=== PATIENT | female | born 1990 | race Caucasian/White ===

== ENCOUNTER 2016-07-20 23:05 | Emergency (ER) | payer OTHER ==
[2016-07-21] MEDS ORDERED: ACETAMINOPHEN TAB 500 MG TAB PO STA (00:14)
[2016-07-21 00:32] LABS: Basophils % (A) 0 %; CH 29.3; CHCM 35.6; Eosinophils # (A) 0.1 k/uL (0-0.7); Eosinophils % (A) 1 %; HCT 37.5 % (34.0-46.0); HDW 2.33; HGB 12.8 gm/dL (11.4-16.0); Luc # (Auto) 0.11; Luc % (Auto) 1; Lymphocytes # (A) 1.7 k/uL (1.0-4.8); Lymphocytes % (A) 22 %; MCH 28.3 pg (25.0-35.0); MCHC 34.2 g/dL (31.0-37.0); MCV 82.7 fL (80.0-100.0); Monocytes # (A) 0.5 k/uL (0-1.0); Monocytes % (A) 7 %; Neutrophils # (A) 5.4 k/uL (1.3-7.7); Neutrophils % (A) 69 %; RBC 4.53 m/uL (3.80-5.40); RDW 12.2 % (11.5-15.5); WBC 7.8 k/uL (3.8-10.6); WBC (Perox) 8.02
[2016-07-21 00:34] LABS: Appearance,Urine Cloudy (Clear); Bilirubin,Urine Negative (Negative); Calcium Oxalate Crystals,Urine Occasional /hpf; Glucose,Urine (UA) Negative (Negative); Ketones,Urine Negative (Negative); Leukocyte Esterase,Urine Negative (Negative); Mucus,Urine Few /hpf; Nitrite,Urine Negative (Negative); PH, Urine 5.5 (5.0-8.0); Particle Count 8635; Protein,Urine Trace (Negative); RBC,Urine 10 /hpf (0-5); Specific Gravity,Urine 1.022 (1.001-1.035); Squamous Epithelial Cell,Urine 13 /hpf (0-4); UA Billing (MACRO vs. MICRO) MICRO; Urobilinogen,Urine <2.0 mg/dL (<2.0); WBC,Urine 2 /hpf (0-5)
[2016-07-21 00:40] LABS: ALT 32 U/L (9-52); AST 21 U/L (14-36); Alkaline Phosphatase 60 U/L (38-126); Amylase 42 U/L (30-110); Anion Gap 12 mmol/L; Blood Urea Nitrogen 8 mg/dL (7-17); Calcium 9.5 mg/dL (8.4-10.2); Carbon Dioxide 22 mmol/L (22-30); Chloride 104 mmol/L (98-107); Glucose 86 mg/dL (74-99); Non-African American GFR(MDRD) >60 (>60 ml/min/1.73 sqM); Potassium 3.9 mmol/L (3.5-5.1); Sodium 138 mmol/L (137-145); Total Bilirubin 0.5 mg/dL (0.2-1.3); Total Protein 6.7 g/dL (6.3-8.2)
--- NOTE | 2016-07-21 00:43 | ED ---
Abdominal Pain HPI - General Chief Complaint: Abdominal Pain Stated Complaint: abdominal pain early Time Seen by Provider: 07/20/16 23:53 Source: patient, RN notes reviewed Mode of arrival: ambulatory - History of Present Illness Initial Comments: Patient is 25-year-old female presenting to the with chief complaint of diffuse abdominal pain for approximately 1 hour. She states that she thinks an early . She states this is no nausea. She denies any changes in stools recently. She denies any fevers or chills. States that the pain is a crampy like sensation and radiates throughout the entire abdomen. She denies any radiation towards her back. Denies any dysuria or hematuria. She denies any vaginal discharge or vaginal spotting. She states that she has not followed up with BUSINESS DATA ANALYST. - Related Data Home Medications Medication Instructions Recorded Confirmed No Known Home Medications [No 07/20/16 07/20/16 Known Home Medications] Allergies Allergy/AdvReac Type Severity Reaction Status Date / Time Penicillins Allergy Rash/Hives Verified 07/20/16 23:43 Review of Systems ROS Statement: Those systems with pertinent positive or pertinent negative responses have been documented in the HPI. ROS Other: All systems not noted in ROS Statement are negative. Past Medical History Past Medical History: No Reported History History of Any Multi-Drug Resistant Organisms: None Reported Past Surgical History: No Surgical Hx Reported Past Psychological History: No Psychological Hx Reported Smoking Status: Current some day smoker Past Alcohol Use History: None Reported Past Drug Use History: None Reported General Exam - General Exam Comments Initial Comments: Patient is a pleasant 25-year-old female. She does not appear to be in any significant distress at this time. General appearance: alert, in no apparent distress Head exam: Present: atraumatic, normocephalic, normal inspection Eye exam: Present: normal appearance, PERRL, EOMI. Absent: scleral icterus, conjunctival injection, periorbital swelling ENT exam: Present: normal exam, mucous membranes moist Neck exam: Present: normal inspection. Absent: tenderness, meningismus, lymphadenopathy Respiratory exam: Present: normal lung sounds bilaterally. Absent: respiratory distress, wheezes, rales, rhonchi, stridor Cardiovascular Exam: Present: regular rate, normal rhythm, normal heart sounds. Absent: systolic murmur, diastolic murmur, rubs, gallop, clicks GI/Abdominal exam: Present: soft, tenderness (Diffuse abdominal tenderness.), normal bowel sounds. Absent: distended, guarding, rebound, rigid, diminished bowel sounds, hyperactive bowel sounds Extremities exam: Present: normal inspection, full ROM, normal capillary refill. Absent: tenderness, pedal edema, joint swelling, calf tenderness Back exam: Present: normal inspection Neurological exam: Present: alert, oriented X3, CN II-XII intact Psychiatric exam: Present: normal affect, normal mood Skin exam: Present: warm, dry, intact, normal color. Absent: rash Course Vital Signs 07/20/16 07/21/16 23:08 02:03 Temperature 98.4 F 98 F Pulse Rate 115 H 98 Respiratory 18 20 Rate Blood Pressure 139/84 124/72 O2 Sat by Pulse 99 98 Oximetry Medical Decision Making - Medical Decision Making 25 female in early with 1 hour of abodminal pain. Labs reviewed to be normal. . Patient was given PO tylenol and IV hydration and pain has completely subsided. PAtient thinks it was related to gas. Patient transvaginal US shows IUP measuring 9 weeks. When I went to start pelvvic exam patient stated that she is pain free and wants to go home. Patient was reevaluated and denies abdominal tenderness and vaginal discharge or spotting. She refused pelvic exam. Patient will be discharged home and instructed to follow up with OBGYN. Patient understands treatment plan and will comply. Patient has at home vitamins. - Lab Data Result diagrams: 07/21/16 00:20 07/21/16 00:20 Lab Results 07/21/16 07/21/16 07/21/16 Range/Units 00:20 00:20 00:20 WBC 7.8 (3.8-10.6) k/uL RBC 4.53 (3.80-5.40) m/uL Hgb 12.8 (11.4-16.0) gm/dL Hct 37.5 (34.0-46.0) % MCV 82.7 (80.0-100.0) fL MCH 28.3 (25.0-35.0) pg MCHC 34.2 (31.0-37.0) g/dL RDW 12.2 (11.5-15.5) % Plt Count 305 (150-450) k/uL Neutrophils % 69 % Lymphocytes % 22 % Monocytes % 7 % Eosinophils % 1 % Basophils % 0 % Neutrophils # 5.4 (1.3-7.7) k/uL Lymphocytes # 1.7 (1.0-4.8) k/uL Monocytes # 0.5 (0-1.0) k/uL Eosinophils # 0.1 (0-0.7) k/uL Basophils # 0.0 (0-0.2) k/uL Sodium 138 (137-145) mmol/L Potassium 3.9 (3.5-5.1) mmol/L Chloride 104 (98-107) mmol/L Carbon Dioxide 22 (22-30) mmol/L Anion Gap 12 mmol/L BUN 8 (7-17) mg/dL Creatinine 0.50 L (0.52-1.04) mg/dL Est GFR (MDRD) Af Amer >60 (>60 ml/min/1.73 sqM) Est GFR (MDRD) Non-Af >60 (>60 ml/min/1.73 sqM) Glucose 86 (74-99) mg/dL Calcium 9.5 (8.4-10.2) mg/dL Total Bilirubin 0.5 (0.2-1.3) mg/dL AST 21 (14-36) U/L ALT 32 (9-52) U/L Alkaline Phosphatase 60 (38-126) U/L Total Protein 6.7 (6.3-8.2) g/dL Albumin 4.1 (3.5-5.0) g/dL Amylase 42 (30-110) U/L Lipase 124 (23-300) U/L Urine Color Yellow Urine Appearance Cloudy H (Clear) Urine pH 5.5 (5.0-8.0) Ur Specific [place] 1.022 (1.001-1.035) Urine Protein Trace H (Negative) Urine Glucose (UA) Negative (Negative) Urine Ketones Negative (Negative) Urine Blood Trace H (Negative) Urine Nitrate Negative (Negative) Urine Bilirubin Negative (Negative) Urine Urobilinogen <2.0 (<2.0) mg/dL Ur Leukocyte Esterase Negative (Negative) Urine RBC 10 H (0-5) /hpf Urine WBC 2 (0-5) /hpf Ur Squamous Epith Cells 13 H (0-4) /hpf Calcium Oxalate Crystal Occasional H (None) /hpf Urine Mucus Few H (None) /hpf Urine HCG, Qual (Not Detectd) Blood Type Blood Type Recheck 07/21/16 07/21/16 Range/Units 00:20 00:20 WBC (3.8-10.6) k/uL RBC (3.80-5.40) m/uL Hgb (11.4-16.0) gm/dL Hct (34.0-46.0) % MCV (80.0-100.0) fL MCH (25.0-35.0) pg MCHC (31.0-37.0) g/dL RDW (11.5-15.5) % Plt Count (150-450) k/uL Neutrophils % % Lymphocytes % % Monocytes % % Eosinophils % % Basophils % % Neutrophils # (1.3-7.7) k/uL Lymphocytes # (1.0-4.8) k/uL Monocytes # (0-1.0) k/uL Eosinophils # (0-0.7) k/uL Basophils # (0-0.2) k/uL Sodium (137-145) mmol/L Potassium (3.5-5.1) mmol/L Chloride (98-107) mmol/L Carbon Dioxide (22-30) mmol/L Anion Gap mmol/L BUN (7-17) mg/dL Creatinine (0.52-1.04) mg/dL Est GFR (MDRD) Af Amer (>60 ml/min/1.73 sqM) Est GFR (MDRD) Non-Af (>60 ml/min/1.73 sqM) Glucose (74-99) mg/dL Calcium (8.4-10.2) mg/dL Total Bilirubin (0.2-1.3) mg/dL AST (14-36) U/L ALT (9-52) U/L Alkaline Phosphatase (38-126) U/L Total Protein (6.3-8.2) g/dL Albumin (3.5-5.0) g/dL Amylase (30-110) U/L Lipase (23-300) U/L Urine Color Urine Appearance (Clear) Urine pH (5.0-8.0) Ur Specific [place] (1.001-1.035) Urine Protein (Negative) Urine Glucose (UA) (Negative) Urine Ketones (Negative) Urine Blood (Negative) Urine Nitrate (Negative) Urine Bilirubin (Negative) Urine Urobilinogen (<2.0) mg/dL Ur Leukocyte Esterase (Negative) Urine RBC (0-5) /hpf Urine WBC (0-5) /hpf Ur Squamous Epith Cells (0-4) /hpf Calcium Oxalate Crystal (None) /hpf Urine Mucus (None) /hpf Urine HCG, Qual Detected (Not Detectd) Blood Type O Positive Blood Type Recheck No - Radiology Data Radiology results: report reviewed Transvaginal US shows IUP measuring 9 weeks 4 days. No acute process seen. Disposition Clinical Impression: Abdominal pain Disposition: HOME SELF-CARE Condition: Good Instructions: Abdominal Pain in (ED) Additional Instructions: Vision started take Tylenol for pain. Return to the EC if any alarming signs or symptoms occur. [place] diet for the next few days. Follow-up with primary care physician and BUSINESS DATA ANALYST. Referrals: Yoli Rod DO [Primary Care Provider] - 1-2 days Time of Disposition: 01:54
--- NOTE | 2016-07-21 01:05 | US ---
EXAMINATION TYPE: US OB <= 14 wk fetus DATE OF EXAM: 07/21/2016 12:52 AM COMPARISON: NONE CLINICAL HISTORY: Abdominal pain, , unknown LMP, G1. EXAM PERFORMED: Transabdominal (TA) EXAM MEASUREMENTS: GESTATIONAL AGE / DATING Dates by LMP: Unknown LMP EDC: Dates by Current Scan: (9 weeks/4 days) EDC: 02/19/2017 MATERNAL ANATOMY Uterus: 9.5 x 6.6 x 6.2 cm Right Ovary: 3.2 x 1.7 x 1.2 cm Left Ovary: 3.2 x 2.4 x 1.4 cm Post CDS / Adnexa: no free fluid, wnl Presence of free fluid: no Presence of corpus luteal cyst: no Presence of subchorionic bleed: no GESTATION / SURVEY CRL: 2.8 cm (9 weeks/4 days) MSD: seen Yolk Sac (normal less than 6mm): 3.2 mm Heart Rate: 172 bpm Rhythm: Normal IUP: Viable IUP Date of LMP: unknown, G1 Beta HcG (if available): not available TECHNOLOGIST IMPRESSION: Live single IUP measuring 9 weeks 4 days IMPRESSION: The ultrasound gestational age is 9 weeks 4 days. I see no complicating process.
[2016-07-21 02:05] VITALS: BP 124/72; PULSE 98; RESP 20; TEMP 98
== END 2016-07-21 02:05 | disposition home or self-care (01) ==
LOC: EC 23:05
DX: O26.891 Other specified pregnancy related conditions, first trimester (principal); R10.9 Unspecified abdominal pain; Z3A.09 9 weeks gestation of pregnancy; Z88.0 Allergy status to penicillin
CPT/HCPCS: 36415; 76801; 80053; 81001; 81025; 82150; 83690; 85025; 86900; 86901; 99284

== ENCOUNTER → 2016-09-25 | Outpatient (CLI) | payer OTHER ==
[2016-09-25 12:52] LABS: CHCM 35.7; HCT 32.4 % (34.0-46.0); HDW 2.69; HGB 11.2 gm/dL (11.4-16.0); MCH 29.2 pg (25.0-35.0); MCHC 34.5 g/dL (31.0-37.0); MCV 84.5 fL (80.0-100.0); Mean Platelet Volume 7.2; RBC 3.84 m/uL (3.80-5.40); RDW 13.2 % (11.5-15.5); WBC 10.5 k/uL (3.8-10.6)
[2016-09-25 13:07] LABS: Glucose 82 mg/dL (74-99); Non-African American GFR(MDRD) >60 (>60 ml/min/1.73 sqM)
[2016-09-25 13:37] LABS: Hepatitis B Surface Ag Index 0.08
[2016-09-27 16:34] LABS: HIV-1/HIV-2 Ab Screen NONREAC (NON REAC)
[2016-09-29 07:48] LABS: Mis test requested (Blood) AFP QUAD Screen
== END | disposition home or self-care (01) ==
LOC: LABWHC1 12:29
PROVIDERS: ATTEND Obstetrics & Gynecology
DX: Z34.01 Encounter for supervision of normal first pregnancy, first trimester (principal)
CPT/HCPCS: 36415; 82105; 82565; 82677; 82947; 84702; 85027; 86336; 86762; 86780; 86850; 86900; 86901; 87340; 87389

== ENCOUNTER → 2016-09-29 | Outpatient (CLI) | payer OTHER ==
--- NOTE | 2016-09-29 16:23 | US ---
EXAMINATION TYPE: US OB anatomy transabd DATE OF EXAM: 09/29/2016 3:24 PM COMPARISON: NONE HISTORY: LGA TECHNIQUE: EXAM MEASUREMENTS: GESTATIONAL AGE / DATING Physician Established: (19 weeks/4 days) EDC: 02/19/2017 Dates by LMP: UNKNOWN Dates by First Scan: (19 weeks/4 days) EDC: 02/19/2017 Dates by Current Scan for: (20 weeks/0 days) EDC: 02/16/2017 SURVEY IUP: Single PLACENTA: Anterior PREVIA: No previa TARAN: 12.0 cm Normal CERVICAL LENGTH (transabdominal: norm > 3.0cm): 4.1 cm BIOMETRY PRESENTATION: Breech BPD: 4.7 cm 20 weeks / 2 days HC: 17.4 cm 20 weeks / 0 days AC: 15.4 cm 20 weeks / 4 days FL: 3.2 cm 20 weeks / 0 days ESTIMATED WEIGHT IN GRAMS: 342 grams ESTIMATED WEIGHT IN LBS/OZS: 0 lbs. 12 oz. WEIGHT PERCENTAGE BASED ON ESTABLISHED DATE: 83.5 % HC/AC: 1.1 FL/AC: 20.9 HEART RATE: 158 bpm RHYTHM: Normal ANATOMY SEEN (within normal limits): * Lateral Vent (< 1 cm) 0.8 cm * Cisterna Magna (< 1.1 cm) 0.6 cm * Nuchal Fold (< 0.6 cm) 0.3 cm * Cerebellum (varies with age) 2.2 cm Choroid Plexus (bilateral) Midline Falx Cavus Septi Pellucidi Four Chamber Heart Outflow tracts: LVOT/RVOT Stomach Situs Nose / Lips Diaphragm Kidneys (bilateral) Bladder Cord Insert Three Vessel Cord Longitudinal Spine Transverse Spine Arms (bilateral) Legs (bilateral) TECHNOLOGIST IMPRESSION: growth according to dates IMPRESSION: Single viable intrauterine corresponding to ultrasound age 20 weeks 0 days with estimated d ate of delivery February by today's exam.
== END | disposition home or self-care (01) ==
LOC: RADUSWWP 14:18
PROVIDERS: ATTEND Obstetrics & Gynecology
DX: O36.62X0 Maternal care for excessive fetal growth, second trimester, not applicable or unspecified (principal); Z3A.20 20 weeks gestation of pregnancy
CPT/HCPCS: 76811

== ENCOUNTER → 2016-11-26 | Outpatient (CLI) | payer OTHER ==
[2016-11-26 14:14] LABS: CHCM 35.5; HCT 29.6 % (34.0-46.0); HDW 2.98; HGB 10.5 gm/dL (11.4-16.0); MCH 30.2 pg (25.0-35.0); MCHC 35.4 g/dL (31.0-37.0); MCV 85.1 fL (80.0-100.0); Mean Platelet Volume 6.9; RBC 3.47 m/uL (3.80-5.40); RDW 13.5 % (11.5-15.5); WBC 10.9 k/uL (3.8-10.6)
== END | disposition home or self-care (01) ==
LOC: LABWHC1 13:57
PROVIDERS: ATTEND Obstetrics & Gynecology
DX: Z34.02 Encounter for supervision of normal first pregnancy, second trimester (principal); Z3A.00 Weeks of gestation of pregnancy not specified
CPT/HCPCS: 36415; 82950; 85027

== ENCOUNTER 2017-02-19 13:09 | Inpatient (IN) | payer OTHER ==
[2017-02-22] MEDS ORDERED: OXYTOCIN 10 UNIT/ML 1 ML VIAL IM PRN (06:37)
[2017-02-22] MEDS ORDERED: TERBUTALINE 1 MG/ML VIAL SQ PRN (06:37)
[2017-02-22] MEDS ORDERED: METHYLERGONOVINE 0.2 MG/ML 1 ML AMP IM PRN (06:37)
[2017-02-22] MEDS ORDERED: LIDOCAINE 1% (PF) 10 MG/ML (30 ML SDV) SQ PRN (06:37)
[2017-02-22] MEDS ORDERED: CARBOPROST TROMETHAMINE 250 MCG/ML 1 ML AMP IM PRN (06:37)
[2017-02-22] MEDS: LACTATED RINGERS 1,000 ML IV SCH ×3 (06:59→17:50)
[2017-02-22] MEDS: OXYTOCIN 20 UNITS/1000 ML NS 1,000 ML IV SCH (07:03)
[2017-02-22 07:06] LABS: Basophils % (A) 0 %; CH 30.7; CHCM 34.8; Eosinophils # (A) 0.2 k/uL (0-0.7); Eosinophils % (A) 2 %; HDW 2.92; HGB 12.6 gm/dL (11.4-16.0); Luc # (Auto) 0.17; Luc % (Auto) 1; Lymphocytes # (A) 3.7 k/uL (1.0-4.8); Lymphocytes % (A) 28 %; MCH 29.5 pg (25.0-35.0); MCHC 33.3 g/dL (31.0-37.0); MCV 88.8 fL (80.0-100.0); Mean Platelet Volume 7.6; Monocytes # (A) 0.6 k/uL (0-1.0); Monocytes % (A) 5 %; Neutrophils # (A) 8.4 k/uL (1.3-7.7); Neutrophils % (A) 64 %; RBC 4.27 m/uL (3.80-5.40); WBC 13.1 k/uL (3.8-10.6); WBC (Perox) 13.27
[2017-02-22 08:18] VITALS: BMI 29.9
[2017-02-22] MEDS ORDERED: BUTORPHANOL 1 MG/ML 1 ML VIAL IV PRN (16:03)
[2017-02-22] MEDS ORDERED: BUPIVACAINE (PF) 0.25% 30 ML VIAL ONE ×2 (17:36→22:17)
[2017-02-22] MEDS ORDERED: fentaNYL (PF) 50 MCG/ML 5 ML AMP ONE ×2 (17:36→22:17)
[2017-02-22] MEDS ORDERED: SODIUM CHLORIDE 0.9% 100 ML BAG ONE ×2 (17:36→22:17)
[2017-02-22] MEDS ORDERED: ceFAZolin 2 GM in SODIUM CHLORIDE 0.9% 100 ML IVPB ONE (21:55)
[2017-02-22] MEDS ORDERED: CITRIC ACID-SODIUM CITRATE 15 ML CUP PO ONE (21:55)
[2017-02-22] MEDS ORDERED: KETOROLAC 30 MG/ML 1 ML VIAL ONE (22:17)
[2017-02-22] MEDS ORDERED: OXYTOCIN 10 UNIT/ML 1 ML VIAL ONE (22:17)
[2017-02-22] MEDS ORDERED: ONDANSETRON 4 MG/2 ML VIAL ONE (22:17)
[2017-02-22] MEDS ORDERED: ZOLPIDEM 5 MG TAB PO PRN (22:51)
[2017-02-22] MEDS ORDERED: diphenhydrAMINE 50 MG/ML 1 ML VIAL IVP PRN ×2 (22:51)
[2017-02-22] MEDS ORDERED: diphenhydrAMINE 50 MG CAP PO PRN (22:51)
[2017-02-22] MEDS ORDERED: diphenhydrAMINE 25 MG CAP PO PRN (22:51)
[2017-02-22] MEDS ORDERED: NALOXONE 0.4 MG/ML 1 ML VIAL IV PRN (22:51)
[2017-02-22] MEDS ORDERED: METOCLOPRAMIDE 5 MG/ML 2 ML VIAL IVP PRN (22:51)
[2017-02-22] MEDS ORDERED: ONDANSETRON 4 MG/2 ML VIAL IVP PRN (22:51)
--- NOTE | 2017-02-22 22:54 | P.HPOB ---
History of Present Illness H&P Date: 02/22/17 Chief Complaint: Intrauterine at 40 weeks: Induction of labor Patient is a 18-year-old at 40 weeks gestation who arrives for induction of labor. Her course had been generally unremarkable. She is feeling well at this time. Vital signs are stable and afebrile. Pertinent labs include O+ blood type rubella was nonimmune hepatitis B surface antigen and group B strep were both negative. On physical exam vital signs are stable and afebrile. Heart regular, lungs clear, extremities without pain. Osteopathic exam is unremarkable. She is dilated to 1 cm 80% effaced -2 station. Artificial rupture membranes was performed and clear fluid is noted. We'll plan Pitocin augmentation of labor and expectant management with epidural for analgesia. Assessment intrauterine at 40 weeks. Plan induction of labor. Past Medical History Past Medical History: No Reported History History of Any Multi-Drug Resistant Organisms: None Reported Past Surgical History: No Surgical Hx Reported Past Anesthesia/Blood Transfusion Reactions: No Reported Reaction Past Psychological History: No Psychological Hx Reported Smoking Status: Current some day smoker Past Alcohol Use History: None Reported Past Drug Use History: None Reported - Past Family History Mother Family Medical History: Cancer Medications and Allergies Home Medications Medication Instructions Recorded Confirmed Type Pnv No.95/Ferrous Fum/Folic AC 1 tab PO DAILY 02/22/17 02/22/17 History [ Multivitamin Tablet] Allergies Allergy/AdvReac Type Severity Reaction Status Date / Time Penicillins Allergy Rash/Hives Verified 02/22/17 07:03 Exam Osteopathic Statement: *. No significant issues noted on an osteopathic structural exam other than those noted in the History and Physical/Consult. - Vital Signs Vital signs: Vital Signs Temp Pulse Resp BP 02/22/17 07:15 97.4 F L 132 H 16 121/85 Intake and Output 02/22/17 02/22/17 02/22/17 06:59 14:59 22:59 Intake Total 1000 Balance 1000 Intake: IV 1000 Lactated Ringers 1,000 ml 1000 @ 125 mls/hr IV .Q8H [facility] Rx#:[id number] Other: Weight 67.132 kg 67.132 kg Patient Weight 02/23/17 06:59 Weight 67.132 kg Results Result Diagrams: 02/22/17 06:55 Abnormal Lab Results - Last 24 Hours (Table) 02/22/17 Range/Units 06:55 WBC 13.1 H (3.8-10.6) k/uL Neutrophils # 8.4 H (1.3-7.7) k/uL
--- NOTE | 2017-02-22 22:59 | P.OP ---
Date of Procedure: 02/22/17 Preoperative Diagnosis: Intrauterine with arrest of dilatation Postoperative Diagnosis: Same Procedure(s) Performed: Nikki low transverse section Implants: Anesthesia: epidural Surgeon: Paulino Drummond Transformer Assembly Supervisor #1: Donald Bain Estimated Blood Loss (ml): 400 IV fluids (ml): 500 Urine output (ml): 300 Pathology: other (placenta) Condition: stable Disposition: floor Indications for Procedure: Operative Findings: Silviano was evaluated throughout the day and had multiple cervical exams. From initial cervical check until approximately 5 PM she had made 1 cm change. For 5 PM to 6 PM she made change from 2-4. From 6 PM to 10 PM she made no further cervical change. Arrest of dilatation was called and patient requested section. Meconium is noted at delivery and scores were 9 and 9 at one and 5 minutes with a weight of 7 lbs. 4 oz. Description of Procedure: Patient was taken to the operating suite where a epidural analgesia's G6 was noted to be adequate. She was prepped and draped in normal sterile fashion and placed in dorsal supine position with leftward tilt. Initially a Pfannenstiel skin incision was made and this incision was then carried through to underlying layer of the fascia was second knife. Fascia was then nicked in the midline and this opening was extended laterally with Pandey scissors. Superior and inferior aspect of this incision were then grasped tented up and bluntly and sharply dissected off rectus muscles. Rectus muscles were then divided midline and blunt dissection through the peritoneum was made. This opening was then extended superiorly and inferiorly with good visualization of both bowel bladder. Bladder blade was then placed bladder flap identified and entered with Metzenbaum scissors and the opening was extended across face sheet of the uterus with Metzenbaum scissors. Bladder flap was then digitally created. Knife was then used to incise uterus it was fully developed with a hemostat and then bluntly extended. Head was then H medically delivered nothing nares bulb suctioned anterior posterior shoulders delivered gentle downward and upward traction followed by the remainder the baby. Umbilical cord was then clamped cut usual fashion an nursery personnel was present to assume care. Placenta was then delivered intact and Pitocin was added to the IV. Uterus was then exteriorized cleared of clots and debris and closed in 2 layers with 0 Vicryl suture. Once excellent hemostasis was obtained blood and debris was suctioned from the posterior cul-de-sac and uterus was reinserted into the abdomen. Peritoneal layer was then closed 0 Vicryl suture fascial layer was closed with 0 Vicryl suture one layer of 3-0 Vicryl was placed in deep subcuticular tissues to reapproximate the skin and close space and the skin was then closed with 3-0 Vicryl on a Fred needle. Sponge, lap, needle counts were all correct 2. Patient was then taken to the recovery room in stable and satisfactory condition.
[2017-02-22] MEDS: HYDROmorphone PCA 5 MG/25 ML SYRINGE IV PRN (23:23)
[2017-02-23] MEDS: LACTATED RINGERS 1,000 ML IV SCH ×4 (00:20→15:09)
[2017-02-23] MEDS: KETOROLAC 30 MG/ML 1 ML VIAL IVP PRN ×3 (05:16→20:12)
[2017-02-23] MEDS: SENNOSIDES-DOCUSATE SODIUM 1 EACH TAB PO SCH ×2 (07:25→20:08)
[2017-02-23] MEDS: OXYTOCIN 20 UNITS/1000 ML NS 1,000 ML IV SCH (07:46)
[2017-02-23] MEDS ORDERED: MEASLES-MUMPS-RUBELLA VACC/PF 12,500 UNIT/0.5 ML VIAL SQ ONE (07:47)
[2017-02-23] MEDS: HYDROmorphone PCA 5 MG/25 ML SYRINGE IV PRN (08:41)
--- NOTE | 2017-02-23 08:46 | P.PNOBGPC ---
Subjective - Subjective Principal diagnosis: POD1 Interval history: ambulating and tolerating her diet. has had some decrease in output over night, but voices no other c/o and vss and afebrile. will try and increase liquids this am and once urine output improves remove yuan Patient reports: Reports appetite normal : doing well Objective - Vital Signs Latest vital signs: Vital Signs Temp Pulse Resp BP Pulse Ox 02/23/17 07:42 98.2 F 95 17 103/61 98 02/23/17 04:00 98.7 F 103 H 17 106/66 96 02/23/17 01:00 98.4 F 110 H 16 111/62 98 02/23/17 00:30 111 H 17 114/59 98 02/23/17 00:00 113 H 17 121/58 99 02/22/17 23:45 117 H 18 116/59 99 02/22/17 23:30 113 H 16 120/69 98 02/22/17 23:15 105 H 17 117/85 99 02/22/17 23:00 98.8 F 105 H 16 123/88 97 Intake and Output 02/22/17 02/23/17 02/23/17 22:59 06:59 14:59 Intake Total 50.75 600 Output Total 150 Balance -99.25 600 Intake: Intake, IV Titration 50.75 Amount Oxytocin 20 Units/1000 ml 50.75 Ns 1,000 ml @ 1 MILLIUNIT/MIN 3 mls/hr IV .Q24H [facility] Rx#:[id number] Oral 600 Output: Urine 150 Other: Voiding Method Indwelling Catheter Indwelling Catheter - Exam Lungs: bilateral: normal Chest: Normal S1, Normal S2 Extremities: Present: normal Abdomen: Present: normal appearance, soft. Absent: distention, tenderness Incision: Present: normal, dry, intact Uterus: Present: normal, firm
[2017-02-23 09:30] LABS: Basophils % (A) 0 %; CH 29.4; CHCM 34.2; Eosinophils # (A) 0.1 k/uL (0-0.7); Eosinophils % (A) 1 %; HCT 27.6 % (34.0-46.0); HDW 2.91; Luc # (Auto) 0.21; Luc % (Auto) 1; Lymphocytes # (A) 2.7 k/uL (1.0-4.8); Lymphocytes % (A) 18 %; MCH 29.8 pg (25.0-35.0); MCHC 34.4 g/dL (31.0-37.0); MCV 86.5 fL (80.0-100.0); Mean Platelet Volume 7.7; Monocytes # (A) 0.7 k/uL (0-1.0); Monocytes % (A) 4 %; Neutrophils # (A) 11.5 k/uL (1.3-7.7); Neutrophils % (A) 76 %; RBC 3.19 m/uL (3.80-5.40); RDW 13.3 % (11.5-15.5); WBC 15.2 k/uL (3.8-10.6); WBC (Perox) 16.24
[2017-02-23 09:38] LABS: HGB 9.5 gm/dL (11.4-16.0)
[2017-02-23] MEDS: ACETAMINOPHEN TAB 325 MG TAB PO PRN (15:09)
[2017-02-24] MEDS: IBUPROFEN 600 MG TAB PO PRN ×2 (07:27→14:42)
[2017-02-24 07:45] VITALS: BP 117/70; PULSE 112; RESP 16; TEMP 98.5
[2017-02-24] MEDS: SENNOSIDES-DOCUSATE SODIUM 1 EACH TAB PO SCH (08:17)
--- NOTE | 2017-02-24 08:41 | P.DS ---
Providers Date of admission: 02/22/17 06:10 Expected date of discharge: 02/24/17 Attending physician: Paulino Drummond Primary care physician: Stated None Hospital Course: tra is doing very well operative day 2. She is ambulating, voiding and she is tolerating her diet. She voices no complaints. She is requesting discharge home today. Vital signs are stable and afebrile. Heart regular, lungs clear, extremities without pain. Abdomen is soft uterus is firm lochia is reported be light area incision is clean dry and intact. Assessment post op day 2. Plan discharged home follow me in 1 week. Prescription for pain medicine Tylenol 3 and Motrin been provided as has a breast pump prescription. She is stable for discharge this time. Patient Condition at Discharge: Good Plan - Discharge Summary New Discharge Prescriptions: New Acetaminophen-Codeine 300-30mg [Tylenol #3] 1 tab PO Q4H PRN #30 tablet PRN Reason: Pain Ibuprofen [Motrin] 600 mg PO Q6HR PRN #30 tab PRN Reason: Pain No Action Pnv No.95/Ferrous Fum/Folic AC [ Multivitamin Tablet] 1 tab PO DAILY Discharge Medication List Pnv No.95/Ferrous Fum/Folic AC [ Multivitamin Tablet] 1 tab PO DAILY [History] Acetaminophen-Codeine 300-30mg [Tylenol #3] 1 tab PO Q4H PRN #30 tablet [Rx] Ibuprofen [Motrin] 600 mg PO Q6HR PRN #30 tab 02/24/17 [Rx] Follow up Appointment(s)/Referral(s): Paulino Drummond DO [Doctor of Osteopathic Medicine] - 1 Week Activity/Diet/Wound Care/Special Instructions: Heavy lifting, limit stairs and driving, and pelvic rest. If any high temperatures, heavy bleeding, or severe pain call my office Discharge Disposition: HOME SELF-CARE
[2017-02-24] MEDS: ACETAMINOPHEN TAB 325 MG TAB PO PRN (10:54)
== END 2017-02-24 16:30 | disposition home or self-care (01) | DRG 766 ==
LOC: 4FBP 02-22 06:10
PROVIDERS: ADMIT Obstetrics & Gynecology; ATTEND Obstetrics & Gynecology
PROC: 10907ZC Drainage of Amniotic Fluid, Therapeutic from Products of Conception, Via Natural or Artificial Opening (ICD-10-PCS; 2017-02-22)
PROC: 3E033VJ Introduction of Other Hormone into Peripheral Vein, Percutaneous Approach (ICD-10-PCS; 2017-02-22)
PROC: 3E0S3NZ Introduction of Analgesics, Hypnotics, Sedatives into Epidural Space, Percutaneous Approach (ICD-10-PCS; 2017-02-22)
PROC: 10D00Z1 Extraction of Products of Conception, Low, Open Approach (ICD-10-PCS; principal; 2017-02-22 22:24)
PROC: 3E0134Z Introduction of Serum, Toxoid and Vaccine into Subcutaneous Tissue, Percutaneous Approach (ICD-10-PCS; 2017-02-23)
DX: O62.0 Primary inadequate contractions (principal); F17.200 Nicotine dependence, unspecified, uncomplicated; O99.334 Smoking (tobacco) complicating childbirth; O77.0 Labor and delivery complicated by meconium in amniotic fluid; O61.0 Failed medical induction of labor; Z3A.40 40 weeks gestation of pregnancy; Z37.0 Single live birth; Z23 Encounter for immunization; Z88.0 Allergy status to penicillin; Z80.9 Family history of malignant neoplasm, unspecified
CPT/HCPCS: 85025; 86850; 86900; 86901; 88307; 90707